=== PATIENT | male | born 1970 | race Caucasian/White ===

== ENCOUNTER 2022-12-24 05:59 | Outpatient (CLI) | payer MEDICAID, SELFPAY ==
--- NOTE | 2022-12-24 06:15 | USCV_ITS ---
Eduardo Alvarez Age: 52 Gender: M : 1970 Exam Date: 12/24/2022 06:18 Ordering Phys: Paulie PearceP Technologist: Exam Location: [facility] – [place] Indication: syncope Risk Factors: None Previous Vascular Surgery: Right Brachial BP: / Left Brachial BP: / Right Left Velocity (cm/s) Spectral Plaque Velocity (cm/s) Spectral Plaque Syst/Diast Broadening Syst/Diast Broadening 71.70/ 15.40 Prox CCA 73.90 / 23.20 63.90/ 16.50 Mid CCA 65.10 / 18.70 58.40/ 15.40 Distal CCA 71.70 / 18.70 72.80/ 18.70 Prox ICA 44.00 / 13.80 71.70/ 19.80 Mid ICA 73.60 / 28.30 67.30/ 33.10 Distal ICA 88.00 / 32.50 102.50 ECA 62.80 1.02 ICA/CCA 1.19 Antegrade Vertebral Antegrade 33.80/ 9.30 cm/s 41.90/ 9.40 cm/s Tri Subclavian Tri 75.00 147.6 0 CONCLUSIONS Intimal thickening in the common carotid arteries and internal carotid arteries bilaterally. Right ICA stenosis <50%. Left ICA stenosis <50%. Normal antegrade Doppler flow noted in the right vertebral artery. Normal antegrade Doppler flow noted in the left vertebral artery. Tyler Chery MD (Electronically Signed) Final Date: 24 December 2022 10:21 S
== END 2022-12-24 06:00 | disposition home or self-care (01) ==
PROVIDERS: PCP Registered Nurse; Visit Provider Registered Nurse
DX: I10 Essential (primary) hypertension (principal); R55 Syncope and collapse; I77.89 Other specified disorders of arteries and arterioles
CPT/HCPCS: 80053; 80061; 82306; 83036; 85025; 93880